=== PATIENT | female | born 1935 | race Caucasian/White ===

== ENCOUNTER 2018-04-21 21:20 | Inpatient (IN) ==
[2018-04-21] MEDS ORDERED: Pantoprazole 80 MG in 0.9 % Sodium Chloride 50 ML IVPB ONE (22:09)
[2018-04-21] MEDS ORDERED: Ondansetron 4 MG/2 ML VIAL IVP ONE (22:09)
[2018-04-21] MEDS ORDERED: 0.9 % Sodium Chloride 1,000 ML IVC ONE (22:09)
[2018-04-21 22:38] LABS: Basophils % 0.1 %; Eosinophils % 0.1 %; Hematocrit 35.8 % (35.3-44.9); Hemoglobin 12.3 g/dL (11.5-15.4); Immature Granulocytes % 2.3 % (0-4); Lymphocytes # 0.6 K/mcL (0.6-4.6); Lymphocytes % 4.1 %; Mean Corpuscular HGB Conc 34.4 g/dL (31.6-35.5); Mean Corpuscular Hemoglobin 29.2 pg (28.0-33.3); Mean Platelet Volume 10.3 fL (9.4-12.4); Monocytes # 0.9 K/mcL (0.0-1.3); Neutrophils # 11.7 K/mcL (1.6-8.9); Platelet Count 183 K/mcL (140-400); Red Blood Count 4.21 M/mcL (3.82-4.97); Red Cell Distribution Width 13.2 % (11.5-14.5); Segmented Neutrophils % 86.4 %
[2018-04-21 22:45] LABS: INR 1.2
[2018-04-21 22:48] LABS: Activated Partial Thrombo Time 27.8 Seconds (26.0-36.0)
[2018-04-21 23:11] LABS: Alanine Aminotransferase 6 Units/L (7-52); Albumin 3.9 g/dL (3.5-5.7); Albumin/Globulin Ratio 1.3 (1.1-2.2); Alkaline Phosphatase 60 Units/L (34-104); Aspartate Amino Transferase 12 Units/L (13-39); BUN/Creatinine Ratio 24 (6-26); Bilirubin,Direct 0.3 mg/dL (0.0-0.2); Bilirubin,Indirect 1.5 mg/dL (0.0-1.2); Bilirubin,Total 1.8 mg/dL (0.3-1.0); Blood Urea Nitrogen 21 mg/dL (8-23); Calcium 9.3 mg/dL (8.6-10.3); Carbon Dioxide 25 mEq/L (23-29); Chloride 103 mEq/L (98-107); Glucose 282 mg/dL (70-105); Lipase 10 Units/L (11-82); Osmolality,Calculated 303 (280-300); Potassium 2.3 mEq/L (3.5-5.1); Sodium 140 mEq/L (136-145); Total Protein 6.9 g/dL (6.4-8.9); Troponin I 0.04 ng/mL (< 0.04); eGFR For African Americans > 60 (> 60); eGFR For Non-African Americans > 60 (> 60)
[2018-04-21] MEDS ORDERED: Potassium Chloride 40 MEQ, Lidocaine 1% 2 ML in D5% in Water 500 ML IVPB ONE (23:12)
--- NOTE | 2018-04-22 | Emergency Department Note ---
Disposition Clinical Impression: Upper GI bleeding Disposition: Admitted As Inpatient Condition: Fair Referrals: Freddie Castro DO [Primary Care Provider] - Forms: ED Satisfaction Letter Time of Disposition: 00:07 Nausea/Vomiting/Diarrhea HPI - General Chief complaint: ED Nausea/Vomiting/Diarrhea Stated complaint: N/V Time Seen by Provider: 04/21/18 21:27 Source: patient, EMS Mode of arrival: EMS Limitations: no limitations Nursing Notes Reviewed: Yes Vital Signs Reviewed: Yes - History of Present Illness Pt Subjective Complaint: nausea, vomiting Onset (ago): hour(s) Description of emesis: coffee grounds Associated Abdominal Pain: No Severity: moderate Improves with: nothing Worsens with: nonthing Associated symptoms: Reports: denies other symptoms - Related Data Home Medications Medication Instructions Recorded Confirmed Atorvastatin [Lipitor] 40 mg PO HS 12/01/15 11/06/17 Glimepiride [Amaryl] 2 mg PO DAILY 12/01/15 11/06/17 Insulin Glargine [Lantus] 15 unit SQ BID 12/01/15 11/06/17 Levothyroxine [Synthroid] 50 mcg PO QDPC 12/01/15 11/06/17 Meclizine [Antivert] 25 mg PO TID PRN 12/01/15 11/06/17 Saxagliptin HCl [Onglyza] 2.5 mg PO QAM 12/01/15 11/06/17 amLODIPine [Norvasc] 5 mg PO DAILY 12/01/15 11/06/17 metFORMIN [Glucophage] 500 mg PO TID 12/01/15 11/06/17 Aspirin 81 mg PO DAILY 10/17/17 11/06/17 Cholecalciferol (D-3) [Vitamin D] 2,000 unit PO DAILY 10/17/17 11/06/17 Famotidine [Pepcid] 20 mg PO BID 10/17/17 11/06/17 Ferrous Sulfate [Iron] 325 mg PO DAILY 10/17/17 11/06/17 Insulin ASPART [NovoLOG] 5 unit SQ DAILY 10/17/17 11/06/17 Magnesium Oxide [Mag-Ox] 400 mg PO TID 10/17/17 11/06/17 Nitroglycerin [Nitrostat] 0.4 mg SL AD PRN 10/17/17 11/06/17 [place]-3/Dha/Epa/Fish Oil [Fish Oil 1 each PO DAILY 10/17/17 11/06/17 1,000 mg Softgel] Potassium Chloride 10 meq PO BID 10/17/17 11/06/17 Previous Rx's Medication Instructions Recorded Metoprolol [Lopressor] 25 mg PO BID #60 tablet 12/03/15 Ondansetron ODT [Zofran ODT] 4 mg SL Q6HR #10 tab.rapdis 04/27/17 Meloxicam 7.5 mg PO DAILY #10 tablet 11/06/17 Tramadol HCl [Ultram] 50 mg PO QID PRN 3 Days #7 tab 11/06/17 Allergies Allergy/AdvReac Type Severity Reaction Status Date / Time exenatide [From Byetta] Allergy Nausea Verified 12/01/15 20:46 All systems ED: reviewed and negative except as stated. Constitutional: Denies: fever, chills ENT ED: Denies: ear pain, throat pain, congestion Cardiovascular: Denies: chest pain, palpitations Respiratory: Denies: cough, dyspnea Gastrointestinal: Reports: nausea, vomiting. Denies: abdominal pain, diarrhea, hematochezia Musculoskeletal: Denies: back pain Integumentary: Denies: rash Neurological: Denies: headache Hematological/Lymphatic: Denies: easy bruising Past Medical History - Past Medical History Attestation: Yes The following information was validated with the patient. Source: patient, old records reviewed, nursing notes reviewed Medical history: Reports: atrial fibrillation, diabetes, GERD, hyperlipidemia, hypertension, myocardial infarction, renal disease, thyroid disease Surgical history: Reports: hip replacement (Bilateral) Psychiatric history: Reports: no psych history CAPACITOR ASSEMBLER history: Reports: no CAPACITOR ASSEMBLER history - Social History Smoking Status: Never smoker Smokeless Tobacco Status: No Alcohol use: Reports: none Drug use: Reports: none Physical Exam - General Limitations: no limitations General appearance: alert, in no apparent distress - Head Head exam: atraumatic, normocephalic, normal inspection - Eye Eye exam: Present: normal appearance, PERRL, EOMI. Absent: scleral icterus, conjunctival injection - ENT ENT exam: normal exam, normal oropharynx, mucous membranes moist, normal external ear exam - Neck Neck exam: Present: normal inspection, full ROM - Chest Chest inspection: Present: normal inspection, symmetric chest wall rise. Absent : tenderness - Respiratory Respiratory exam: Present: normal lung sounds bilaterally. Absent: respiratory distress, wheezes - Cardiovascular Cardiovascular exam: Present: regular rate, normal rhythm, normal heart sounds - Abdominal Exam Abdominal exam: Present: soft, Non-Tender, normal bowel sounds. Absent: mass - Extremities Exam Extremities exam: Present: normal inspection. Absent: pedal edema - Neurological Exam Neurological exam: Present: alert, oriented X3 - Psychiatric Psychiatric exam: Present: normal affect, normal mood - Skin Skin exam: Present: warm, dry. Absent: rash Course Course Narrative: Patient presents with vomiting that is dark and coffee ground. She is denying any other symptoms to me at this time. Examination is unremarkable except for some tachycardia. She has not vomited since arrival here to the emergency department. There is an emesis bag with coffee ground vomit in it that we sent down for Gastroccult and it was positive. I ordered Protonix IV and ordered a lab workup to evaluate the patient. Disposition will be based on diagnostic results and reevaluation. - Reevaluation(s) Reevaluation #1: Hemoglobin is fine. Potassium is little bit low so I ordered a K rider to supplement that. There is a small bump in troponin. Patient was vomiting some coffee ground emesis with gastric occult positive material which is consistent with an upper GI bleed but she has a normal blood pressure. She does have some tachycardia. She started gotten upper tonics. She will need to be admitted to the hospital for serial hemoglobins and follow-up. I have paged the hospitalist and am waiting for a return call. Time: 00:02 - Consultations Consultation #1: Dr. Broussard, hospitalist - I discussed the case with the hospitalist. He is accepted patient for admission. Time: 00:07 Vital Signs Temperature 98.2 F 04/21/18 21:25 Pulse Rate 93 04/21/18 21:25 Respiratory Rate 14 04/21/18 21:25 Blood Pressure 162/81 04/21/18 21:25 O2 Sat by Pulse Oximetry 93 04/21/18 21:25 Temperature 98.2 F 04/21/18 21:25 Pulse Rate 108 04/21/18 23:38 Respiratory Rate 16 04/21/18 23:38 Blood Pressure 106/68 04/21/18 23:38 O2 Sat by Pulse Oximetry 94 04/21/18 23:38 Oxygen Delivery Oxygen Delivery Room Air Nausea/Vomiting/Diarrhea - Medical Records Medical records reviewed: Yes I reviewed the patient's medical records. - Lab Data Lab results reviewed: Yes I reviewed the patient's lab results. Result diagrams: 04/21/18 22:28 04/21/18 22:28 Lab Results 04/21/18 04/21/18 04/21/18 Range/Units 21:25 22:28 22:28 WBC 13.5 H (4.3-11.1) K/mcL RBC 4.21 (3.82-4.97) M/mcL Hgb 12.3 (11.5-15.4) g/dL Hct 35.8 (35.3-44.9) % MCV 85.0 (83.0-100.0) fL MCH 29.2 (28.0-33.3) pg MCHC 34.4 (31.6-35.5) g/dL RDW 13.2 (11.5-14.5) % Plt Count 183 (140-400) K/mcL MPV 10.3 (9.4-12.4) fL Immature Gran % 2.3 (0-4) % Seg Neutrophils % 86.4 % Lymphocytes % 4.1 % Monocytes % 7.0 % Eosinophils % 0.1 % Basophils % 0.1 % Neutrophils # 11.7 H (1.6-8.9) K/mcL Lymphocytes # 0.6 (0.6-4.6) K/mcL Monocytes # 0.9 (0.0-1.3) K/mcL Eosinophils # 0.0 (0.0-0.6) K/mcL Basophils # 0.0 (0.0-0.2) K/mcL PT 14.0 H (9.4-12.1) Seconds INR 1.2 APTT 27.8 (26.0-36.0) Seconds Sodium (136-145) mEq/L Potassium (3.5-5.1) mEq/L Chloride (98-107) mEq/L Carbon Dioxide (23-29) mEq/L BUN (8-23) mg/dL Creatinine (0.60-1.20) mg/dL Est GFR ( Amer) (> 60) Est GFR (Non-Af Amer) (> 60) BUN/Creatinine Ratio (6-26) Glucose (70-105) mg/dL Calculated Osmolality (280-300) Lactic Acid (0.5-2.2) mmol/L Calcium (8.6-10.3) mg/dL Total Bilirubin (0.3-1.0) mg/dL Direct Bilirubin (0.0-0.2) mg/dL Indirect Bilirubin (0.0-1.2) mg/dL AST (13-39) Units/L ALT (7-52) Units/L Alkaline Phosphatase (34-104) Units/L Troponin I (< 0.04) ng/mL Serum Total Protein (6.4-8.9) g/dL Albumin (3.5-5.7) g/dL Globulin (2.4-3.5) g/dL Albumin/Globulin Ratio (1.1-2.2) Lipase (11-82) Units/L Stool Occult Blood Positive A (Negative) Blood Type Antibody Screen 04/21/18 04/21/18 04/21/18 Range/Units 22:28 22:28 22:28 WBC (4.3-11.1) K/mcL RBC (3.82-4.97) M/mcL Hgb (11.5-15.4) g/dL Hct (35.3-44.9) % MCV (83.0-100.0) fL MCH (28.0-33.3) pg MCHC (31.6-35.5) g/dL RDW (11.5-14.5) % Plt Count (140-400) K/mcL MPV (9.4-12.4) fL Immature Gran % (0-4) % Seg Neutrophils % % Lymphocytes % % Monocytes % % Eosinophils % % Basophils % % Neutrophils # (1.6-8.9) K/mcL Lymphocytes # (0.6-4.6) K/mcL Monocytes # (0.0-1.3) K/mcL Eosinophils # (0.0-0.6) K/mcL Basophils # (0.0-0.2) K/mcL PT (9.4-12.1) Seconds INR APTT (26.0-36.0) Seconds Sodium 140 (136-145) mEq/L Potassium 2.3 L* (3.5-5.1) mEq/L Chloride 103 (98-107) mEq/L Carbon Dioxide 25 (23-29) mEq/L BUN 21 (8-23) mg/dL Creatinine 0.86 (0.60-1.20) mg/dL Est GFR ( Amer) > 60 (> 60) Est GFR (Non-Af Amer) > 60 (> 60) BUN/Creatinine Ratio 24 (6-26) Glucose 282 H (70-105) mg/dL Calculated Osmolality 303 H (280-300) Lactic Acid 1.3 (0.5-2.2) mmol/L Calcium 9.3 (8.6-10.3) mg/dL Total Bilirubin 1.8 H (0.3-1.0) mg/dL Direct Bilirubin 0.3 H (0.0-0.2) mg/dL Indirect Bilirubin 1.5 H (0.0-1.2) mg/dL AST 12 L (13-39) Units/L ALT 6 L (7-52) Units/L Alkaline Phosphatase 60 (34-104) Units/L Troponin I 0.04 H* (< 0.04) ng/mL Serum Total Protein 6.9 (6.4-8.9) g/dL Albumin 3.9 (3.5-5.7) g/dL Globulin 3.0 (2.4-3.5) g/dL Albumin/Globulin Ratio 1.3 (1.1-2.2) Lipase 10 L (11-82) Units/L Stool Occult Blood (Negative) Blood Type O POSITIVE Antibody Screen NEGATIVE - Radiology Data Radiology results reviewed: Yes I reviewed the patient's radiology results. Twelve-lead EKG performed at 20 1:53 PM shows atrial fibrillation at a rate of 129. Left axis deviation. Left bundle branch block. No obvious acute ischemic changes. Except for the rate and the rhythm, the rest of the EKG looks similar to previous EKGs.
[2018-04-22] MEDS ORDERED: Ondansetron ODT 4 MG TAB.RAPDIS SL PRN (01:09)
[2018-04-22] MEDS ORDERED: Naloxone 0.4 MG/ML INJ IVP PRN (01:09)
[2018-04-22] MEDS ORDERED: Nitroglycerin 0.4 MG TAB.SUBL SL PRN (01:22)
[2018-04-22] MEDS ORDERED: *HR* Dextrose 50 % in Water (Syg) 50 ML SYRINGE IVP PRN (01:23)
[2018-04-22] MEDS ORDERED: Dextrose Gel 15 GM/37.5 ML TUBE PO PRN ×2 (01:23)
[2018-04-22] MEDS ORDERED: D5% in Water 1,000 ML IVC PRN (01:23)
--- NOTE | 2018-04-22 01:24 | Internal Med History&Physical ---
Date of Encounter: 04/22/18 Time of Encounter: 00:30 Internal Medicine - H&P: HPI Chief complaint: Nausea and coffee ground emesis Admitted From: Home Plans for Post Hospital Care: Home History of present illness: Ms. Aiken is a 82 year old female present to ER for nausea and coffee ground emesis. Past medical history is significant for diabetes, hypertension, A. fib. Patient said she started to have stomach sick since this evening. She has nausea and vomited several times. The vomiting are dark and black emesis. Patient denies chest pain, shortness of breath, diaphoresis, or dizziness. Patient also reports black stool occasionally. Patient had last bowel movement on Sunday, and report the stool is black. Patient denies blood thinner use except aspirin 325 mg daily. Patient denies abdominal pain or diarrhea. In the emergency room, guaiac test positive. Patient has stable vitals and H&H. She was admitted as GI bleed, probably due to high-dose aspirin use. Patient denies significant body weight loss. I have discussed CODE STATUS with this patient. Patient is mentally clear, AAO 3, she clearly told me that she does not want resuscitation or intubation. DNR DNI placed. Past Med Surg Social Fam HX - Past Medical History Medical history: atrial fibrillation, diabetes, GERD, hyperlipidemia, hypertension, myocardial infarction, renal disease, thyroid disease Additional medical history: "lung problems" Psychiatric history: no psych history - Past Surgical History Surgical History: hip replacement (Bilateral) Additional surgical history: tubal preg. 1955 bilat carpal tunnel repair. Left eye sx. ORIF BOTH HIPS. - Social History Smoking Status: Never smoker Smokeless Tobacco Status: No Alcohol use: none Drug use: none - Family History Mother History Unknown: Yes Internal Medicine - H&P: Meds Atorvastatin [Lipitor] 40 mg PO HS 12/01/15 [History] Glimepiride [Amaryl] 2 mg PO DAILY 12/01/15 [History] Insulin Glargine [Lantus] 15 unit SQ BID 12/01/15 [History] Levothyroxine [Synthroid] 50 mcg PO QDPC 12/01/15 [History] Meclizine [Antivert] 25 mg PO TID PRN 12/01/15 [History] Saxagliptin HCl [Onglyza] 2.5 mg PO QAM 12/01/15 [History] amLODIPine [Norvasc] 5 mg PO DAILY 12/01/15 [History] metFORMIN [Glucophage] 500 mg PO TID 12/01/15 [History] Metoprolol [Lopressor] 25 mg PO BID #60 tablet 12/03/15 [Rx] Ondansetron ODT [Zofran ODT] 4 mg SL Q6HR #10 tab.rapdis 04/27/17 [Rx] Aspirin 81 mg PO DAILY 10/17/17 [History] Cholecalciferol (D-3) [Vitamin D] 2,000 unit PO DAILY 10/17/17 [History] Famotidine [Pepcid] 20 mg PO BID 10/17/17 [History] Ferrous Sulfate [Iron] 325 mg PO DAILY 10/17/17 [History] Insulin ASPART [NovoLOG] 5 unit SQ DAILY 10/17/17 [History] Magnesium Oxide [Mag-Ox] 400 mg PO TID 10/17/17 [History] Nitroglycerin [Nitrostat] 0.4 mg SL AD PRN 10/17/17 [History] [place]-3/Dha/Epa/Fish Oil [Fish Oil 1,000 mg Softgel] 1 each PO DAILY 10/17/17 [ History] Potassium Chloride 10 meq PO BID 10/17/17 [History] Meloxicam 7.5 mg PO DAILY #10 tablet 11/06/17 [Rx] Tramadol HCl [Ultram] 50 mg PO QID PRN 3 Days #7 tab 11/06/17 [Rx] 3 Allergy/AdvReac Type Severity Reaction Status Date / Time exenatide [From Byetta] Allergy Nausea Verified 12/01/15 20:46 All Systems PM: A 10-system review of systems was performed and is negative for pertinent findings except as documented above in the HPI. - Constitutional Vitals: Temp Pulse Resp BP Pulse Ox 98.2 F 111 18 103/69 92 04/21/18 21:25 04/22/18 00:34 04/22/18 00:34 04/22/18 00:34 04/22/18 00:34 General appearance: Present: A&O X 3, no acute distress, answers questions appropriately - Head Head exam: Present: atraumatic, normocephalic - Eye Eye exam: Present: PERRL, conjuntiva pink, sclera anicteric Pupils: Present: PERRL - Neck Neck exam general surgery: Present: supple, trachea midline. Absent: lymphadenopathy - Respiratory Respiratory exam: Present: CTAB. Absent: accessory muscle use, rales, rhonchi, wheezes - Cardiovascular Cardiovascular exam: Present: RRR, +S1, +S2. Absent: diastolic murmur, gallop, rubs, systolic murmur - GI/Abdominal GI/Abdominal exam: Present: normal bowel sounds, soft, no peritoneal signs. Absent: distended, tenderness - Extremities Exam Extremities exam: Present: warm, radial pulses palpable and symmetrical. Absent : calf tenderness, cyanotic, pedal edema - Neurological Exam Neurological exam: Present: CN II-XII intact, oriented X3, no focal deficits. Absent: pronater drift, facial droop, speech deficit - Skin Skin exam: Present: dry, intact Internal Med - H&P Results - Labs CBC & Chem 7: 04/21/18 22:28 04/21/18 22:28 Labs: Short CBC 04/21/18 Range/Units 22:28 WBC 13.5 H (4.3-11.1) K/mcL Hgb 12.3 (11.5-15.4) g/dL Hct 35.8 (35.3-44.9) % Plt Count 183 (140-400) K/mcL Neutrophils # 11.7 H (1.6-8.9) K/mcL BMP 04/21/18 22:28 Sodium 140 Potassium 2.3 L* Chloride 103 Carbon Dioxide 25 BUN 21 Creatinine 0.86 Glucose 282 H Calcium 9.3 Cardiac Enzymes 04/21/18 Range/Units 22:28 Troponin I 0.04 H* (< 0.04) ng/mL Liver Function 04/21/18 Range/Units 22:28 Total Bilirubin 1.8 H (0.3-1.0) mg/dL Direct Bilirubin 0.3 H (0.0-0.2) mg/dL AST 12 L (13-39) Units/L ALT 6 L (7-52) Units/L Alkaline Phosphatase 60 (34-104) Units/L Albumin 3.9 (3.5-5.7) g/dL - Impressions ITS Impressions Chest X-Ray 04/21/18 22:08 IMPRESSION: 1. Chronic pulmonary fibrosis. 2. Calcific atherosclerosis aorta. 3. Cardiomegaly. D/ / Freddie Joiner / Freddie Joiner Interpreting Provider: Freddie Joiner - Assessment and plan (1) DVT prophylaxis Current Visit: Yes Status: Acute Assessment and plan: EPCDs (2) Upper GI bleeding Current Visit: Yes Status: Acute Assessment and plan: Patient has coffee ground emesis. Reports black stool. Guaiac test positive. Consider upper GI bleed. Probably due to aspirin use. - Place patient on nothing by mouth, IV fluid, IV PPI - Closely monitor vitals and H&H - GI consult in a.m. (3) Anginal equivalent Current Visit: No Status: Acute Assessment and plan: Patient has nausea and vomiting. Denies chest pain. Etiology is undetermined. Patient has a mild elevated troponin, need to rule out ACS. - Place patient on continuous cardiac monitoring - Track 3 sets of troponin (4) Elevated troponin Current Visit: No Status: Acute Assessment and plan: Management as above (5) Atrial fibrillation Current Visit: No Status: Chronic Assessment and plan: Patient is on sinus rhythm when I saw her. Continue rate control by metoprolol iv when necessary. Hold aspirin because of GI bleed. Qualifiers: Atrial fibrillation type: paroxysmal Qualified Code(s): I48.0 - Paroxysmal atrial fibrillation (6) DM type 2 (diabetes mellitus, type 2) Current Visit: No Status: Chronic Assessment and plan: Place patient on basal and sliding scale insulin coverage. Closely monitor glucose. Qualifiers: Diabetes mellitus fdc insulin use: with fdc use Diabetes mellitus complication status: with kidney complications Diabetes mellitus complication detail: with chronic kidney disease Chronic kidney disease stage : stage 3 (moderate) Qualified Code(s): E11.22 - Type 2 diabetes mellitus with diabetic chronic kidney disease; N18.3 - Chronic kidney disease, stage 3 ( moderate); N18.3 - Chronic kidney disease, stage 3 (moderate); Z79.4 - retirement (current) use of insulin; Z79.4 - intermediate project manager (current) use of insulin; Z79.4 - retirement (current) use of insulin; Z79.4 - intermediate project manager (current) use of insulin (7) Hypertension Current Visit: No Status: Chronic Assessment and plan: BP is not high. Patient has GI bleed. Will hold BP medications at this point Qualifiers: Hypertension type: essential hypertension Qualified Code(s): I10 - Essential (primary) hypertension (8) Hypokalemia Current Visit: No Status: Resolved Assessment and plan: Severe hypokalemia. Will give IV supplement and a closely monitor potassium level. Check magnesium level in a.m. Monitor patient in telemetric - Time Spent With Patient Total time spent is greater than 50% in coordination of care (as documented) at patient's floor/unit and/or counseling patient: 40 minutes Greater than 35 minutes
[2018-04-22] MEDS: Insulin LISPRO 300 UNITS/3 ML VIAL SQ SCH ×4 (05:24→21:32)
[2018-04-22] MEDS: Pantoprazole 40 MG VIAL IVP SCH ×2 (05:24→18:02)
[2018-04-22] MEDS: 0.9 % Sodium Chloride 1,000 ML IVC SCH (05:25)
[2018-04-22 05:41] LABS: Basophils % 0.1 %; Hematocrit 30.2 % (35.3-44.9); Immature Granulocytes % 2.7 % (0-4); Lymphocytes # 0.7 K/mcL (0.6-4.6); Lymphocytes % 5.5 %; Mean Corpuscular HGB Conc 33.1 g/dL (31.6-35.5); Mean Corpuscular Volume 87.5 fL (83.0-100.0); Mean Platelet Volume 10.7 fL (9.4-12.4); Monocytes # 0.7 K/mcL (0.0-1.3); Monocytes % 5.6 %; Neutrophils # 11.2 K/mcL (1.6-8.9); Platelet Count 158 K/mcL (140-400); Red Blood Count 3.45 M/mcL (3.82-4.97); Red Cell Distribution Width 13.5 % (11.5-14.5); Segmented Neutrophils % 86.1 %
[2018-04-22 05:56] LABS: BUN/Creatinine Ratio 23 (6-26); Blood Urea Nitrogen 21 mg/dL (8-23); Calcium 8.3 mg/dL (8.6-10.3); Carbon Dioxide 25 mEq/L (23-29); Chloride 105 mEq/L (98-107); Glucose 391 mg/dL (70-105); Magnesium 1.4 mg/dL (1.6-2.6); Osmolality,Calculated 305 (280-300); Phosphorous 3.2 mg/dL (2.7-4.5); Potassium 3.2 mEq/L (3.5-5.1); Sodium 138 mEq/L (136-145); eGFR For African Americans > 60 (> 60); eGFR For Non-African Americans 58 (> 60)
[2018-04-22 06:00] LABS: Troponin I 0.07 ng/mL (< 0.04)
[2018-04-22] MEDS ORDERED: Potassium Chloride 40 MEQ, Lidocaine 1% 2 ML in D5% in Water 500 ML IVPB ONE (07:30)
[2018-04-22] MEDS: Insulin DETEMIR 100 UNIT/ML X5UNITS SQ SCH (08:23)
[2018-04-22] MEDS ORDERED: *HR* Propofol 200 MG/20 ML VIAL IVP ONE (12:25)
[2018-04-22] MEDS ORDERED: Lidocaine -MPF 2% 2 ML VIAL ONE (12:25)
[2018-04-22 12:27] LABS: Hemoglobin 9.8 g/dL (11.5-15.4)
--- NOTE | 2018-04-22 12:30 | Internal Med Progress Note ---
Date of Encounter: 04/22/18 Time of Encounter: 12:26 - Assessment and plan (1) Upper GI bleeding Current Visit: Yes Status: Acute Assessment and plan: Mostly upper GI bleed NPO fo now GI consulted Hb dropped down to 9.8 from 12.3 cont close monitoring H/H PPI Protonix IV BID IV hydration (2) Acute blood loss anemia Current Visit: Yes Status: Acute Assessment and plan: Hb dropped down to 9.8 from 12.3 No need of blood transfusions now cont close monitoring (3) Elevated troponin Current Visit: No Status: Acute Assessment and plan: EKG showed no acute ischemic changes Her slightly elevated trop mostly due to demand ischemia with GI bleed cont trending on her trop held ASA due to GI bleed 2D Echo ordered (4) Hypokalemia Current Visit: No Status: Resolved Assessment and plan: Severe hypokalemia Improving cont replacing (5) Atrial fibrillation Current Visit: No Status: Chronic Assessment and plan: Rate controlled with Metoprolol CHADSVASC score 3, may need alf anti coag However with her GI bleed, unable to start anything now Qualifiers: Atrial fibrillation type: paroxysmal Qualified Code(s): I48.0 - Paroxysmal atrial fibrillation (6) Hypertension Current Visit: No Status: Chronic Assessment and plan: Stable and lower side Held PO meds Qualifiers: Hypertension type: essential hypertension Qualified Code(s): I10 - Essential (primary) hypertension (7) DM type 2 (diabetes mellitus, type 2) Current Visit: No Status: Chronic Assessment and plan: patient on basal and sliding scale insulin coverage. Closely monitor glucose. Qualifiers: Diabetes mellitus alf insulin use: with intermediate teacher use Diabetes mellitus complication status: with kidney complications Diabetes mellitus complication detail: with chronic kidney disease Chronic kidney disease stage : stage 3 (moderate) Qualified Code(s): E11.22 - Type 2 diabetes mellitus with diabetic chronic kidney disease; N18.3 - Chronic kidney disease, stage 3 ( moderate); N18.3 - Chronic kidney disease, stage 3 (moderate); Z79.4 - nursing home (current) use of insulin; Z79.4 - long term care administrator (current) use of insulin; Z79.4 - long term care administrator (current) use of insulin; Z79.4 - long term care administrator (current) use of insulin (8) DVT prophylaxis Current Visit: Yes Status: Acute Assessment and plan: EPCDs - Time Spent With Patient Total time spent is greater than 50% in coordination of care (as documented) at patient's floor/unit and/or counseling patient: - Subjective Interval history: Ms. Aiken is a 82 year old female with known past medical history is significant for diabetes, hypertension and A. fib currently on ASA 81mg pt presented to ER for nausea and coffee ground emesis for 1 day. Pt does c/o dark colored stools. Denied any CP / SOB. She does have weakness and feels lethargic. She denied any previous h/o GI bleed. Pt states her N/V improved. no more hematemesis since this morning. Denied any active CP now. - Constitutional Vitals: Temp Pulse Resp BP Pulse Ox 98.4 F 104 18 101/58 94 04/22/18 12:12 04/22/18 12:12 04/22/18 12:12 04/22/18 12:12 04/22/18 12:12 General appearance: Present: A&O X 3, no acute distress, answers questions appropriately - Head Head exam: Present: atraumatic, normal inspection - Neck Neck exam general surgery: Present: supple - Respiratory Respiratory exam: Present: decreased breath sounds. Absent: rales, respiratory distress, rhonchi, wheezes - Cardiovascular Cardiovascular exam: Present: RRR, +S1, +S2. Absent: tachycardia - GI/Abdominal GI/Abdominal exam: Present: normal bowel sounds, soft. Absent: rebound, rigid, tenderness - Extremities Exam Extremities exam: Absent: calf tenderness, pedal edema, tenderness - Back Exam Back exam: Absent: CVA tenderness (L), CVA tenderness (R) - Neurological Exam Neurological exam: Present: alert, oriented X3 - Psychiatric Psychiatric exam: Present: normal affect, normal mood - Skin Skin exam: Absent: rash Internal Medicine: Result - Labs CBC & Chem 7: 04/22/18 04:55 04/22/18 04:55 Labs: Short CBC 04/22/18 Range/Units 04:55 WBC 13.0 H (4.3-11.1) K/mcL Hgb 10.0 L D (11.5-15.4) g/dL Hct 30.2 L (35.3-44.9) % Plt Count 158 (140-400) K/mcL Neutrophils # 11.2 H (1.6-8.9) K/mcL BMP 04/22/18 04:55 Sodium 138 Potassium 3.2 L D Chloride 105 Carbon Dioxide 25 BUN 21 Creatinine 0.92 Glucose 391 H Calcium 8.3 L Cardiac Enzymes 04/22/18 Range/Units 04:55 Troponin I 0.07 H* (< 0.04) ng/mL - ABG Interpretation ABG results: PT/INR, D-dimer PT 14.0 Seconds (9.4-12.1) H 04/21/18 22:28 - VTE Documentation of Mechanical Device: Intermittent pneumatic compression device Consult Discharge Plan - Plan Referrals: Freddie Castro DO [Primary Care Provider] -
[2018-04-22] MEDS ORDERED: Tetracaine/Benzocaine/Butamben 200MG/SPRAY (100SPY/BOT) MM ONE (13:27)
[2018-04-22] MEDS ORDERED: Simethicone 40 MG/0.6 ML MLS IR ONE (13:27)
--- NOTE | 2018-04-22 13:28 | Anesthesia Evaluation PreOp ---
Date of Encounter: 04/22/18 Time of Encounter: 13:26 - Past History Planned Operation: EGD Cardiac History: UT, HTN, Hyperlipidemia, Arrhythmia (H/O A-Fib) Pulmonary History: Denies Any Significant HX BROWN SOURER History: Denies Any Significant HX Other Medical History: Renal, Diabetes Type II, Thyroid Anesthesia History: No Prior Anesthetic Complications, Past Anesthesia Alcohol Use: none Drug use: none Medications and Allergies Atorvastatin [Lipitor] 40 mg PO HS 12/01/15 [History] Glimepiride [Amaryl] 2 mg PO DAILY 12/01/15 [History] Insulin Glargine [Lantus] 15 unit SQ BID 12/01/15 [History] Levothyroxine [Synthroid] 50 mcg PO QDPC 12/01/15 [History] Meclizine [Antivert] 25 mg PO TID PRN 12/01/15 [History] Saxagliptin HCl [Onglyza] 2.5 mg PO QAM 12/01/15 [History] amLODIPine [Norvasc] 5 mg PO DAILY 12/01/15 [History] metFORMIN [Glucophage] 500 mg PO TID 12/01/15 [History] Metoprolol [Lopressor] 25 mg PO BID #60 tablet 12/03/15 [Rx] Ondansetron ODT [Zofran ODT] 4 mg SL Q6HR #10 tab.rapdis 04/27/17 [Rx] Aspirin 81 mg PO DAILY 10/17/17 [History] Cholecalciferol (D-3) [Vitamin D] 2,000 unit PO DAILY 10/17/17 [History] Famotidine [Pepcid] 20 mg PO BID 10/17/17 [History] Ferrous Sulfate [Iron] 325 mg PO DAILY 10/17/17 [History] Insulin ASPART [NovoLOG] 5 unit SQ DAILY 10/17/17 [History] Magnesium Oxide [Mag-Ox] 400 mg PO TID 10/17/17 [History] Nitroglycerin [Nitrostat] 0.4 mg SL AD PRN 10/17/17 [History] [place]-3/Dha/Epa/Fish Oil [Fish Oil 1,000 mg Softgel] 1 each PO DAILY 10/17/17 [ History] Potassium Chloride 10 meq PO BID 10/17/17 [History] Meloxicam 7.5 mg PO DAILY #10 tablet 11/06/17 [Rx] Tramadol HCl [Ultram] 50 mg PO QID PRN 3 Days #7 tab 11/06/17 [Rx] 3 Allergy/AdvReac Type Severity Reaction Status Date / Time exenatide [From [place]] Allergy Nausea Verified 12/01/15 20:46 - Meds/Allergy Pre-op Review Medications Reviewed: Yes Allergies Reviewed: Yes Beta Blockers on Current Med List: Yes Anesthesia Results - Labs 04/22/18 11:57 04/22/18 04:55 - Imaging EKG: report reviewed (10/17/2017 SINUS RHYTHM MARKED LEFT AXIS DEVIATION LEFT BUNDLE BRANCH BLOCK) Additional studies: 02/25/2015 Echo Impressions: Normal LV systolic function, LVEF 55-60%. There is atypical septal motion consistent with bundle branch block. Mild concentric left ventricular hypertrophy. Mild left ventricular diastolic dysfunction. Normal right ventricular structure and function. Moderately dilated left atrium. Mild tricuspid regurgitation. Mild-moderate pulmonary hypertension. Estimated RVSP = 47 mmHg. 08/17/2011 Cath Impression: Minimal atherosclerotic coronary artery disease. The overall left ventricular systolic function was normal. The left ventricular ejection fraction was 60%. Anesthesia Exam Vital Signs/O2 Sat/Glucose, Most Recent Temp Pulse Resp BP Pulse Ox 98.4 F 70 18 145/64 100 04/22/18 13:19 04/22/18 13:19 04/22/18 13:19 04/22/18 13:19 04/22/18 13:19 Blood Glucose* 181 Height: 5'4''/1.63m Weight: 122 lbs/55.6 kg NPO (# of Hours): 8 Pain Scale: 0 Pain Scale Used: Numeric (1 - 10) - HEENT Pupil (Motor): EOMI Mallampati: II Teeth: Missing, Poor dentition Oral Opening: Greater than 3 - BROWN SOURER LOC: Oriented BROWN SOURER Motor: Normal RUE, Normal LUE, Normal RLE, Normal Face, Deficit LLE (drop foot) BROWN SOURER Sensory: Normal: RUE, LUE, RLE, LLE, Face - Cardiac Rhythm: Regular Murmur: None - Pulmonary Breath Sounds: bilateral Clear Respiratory Effort: Symmetrical Anesthesia Assess/Plan ASA Score: 3 Modified [place] Scale for Level of Consciousness: Cooperative, oriented, and tranquil Anesthetic Plan: MAC Monitoring Plan: Standard Monitors
--- NOTE | 2018-04-22 13:28 | History & Physical Report ---
Date of Encounter: 04/22/18 Time of Encounter: 13:00 24 Hour HP Update - Instructions Instructions: If the History and Physical is less than 30 days old and was completed prior to A.M. admission and or procedure and has NOT been updated on calendar day of procedure please complete this update prior to performing procedure. - Update Patient reports changes in Medical Condition: No Changes in examination, assessment, or condition: No Changes in Medication: No Preop tests/diagnostics Reviewed: Yes Surgery Remains Indicated: Yes Consent for Planned Operative Procedure(s) Verified: Yes
[2018-04-22 16:28] LABS: Hemoglobin 9.7 g/dL (11.5-15.4)
[2018-04-23 01:59] LABS: Eosinophils # 0.1 K/mcL (0.0-0.6); Eosinophils % 0.9 %; Hematocrit 29.1 % (35.3-44.9); Hemoglobin 9.4 g/dL (11.5-15.4); Immature Granulocytes % 0.9 % (0-4); Lymphocytes # 1.7 K/mcL (0.6-4.6); Lymphocytes % 25.8 %; Mean Corpuscular HGB Conc 32.3 g/dL (31.6-35.5); Mean Corpuscular Hemoglobin 28.8 pg (28.0-33.3); Mean Corpuscular Volume 89.3 fL (83.0-100.0); Mean Platelet Volume 10.3 fL (9.4-12.4); Monocytes # 0.4 K/mcL (0.0-1.3); Monocytes % 6.1 %; Neutrophils # 4.3 K/mcL (1.6-8.9); Platelet Count 139 K/mcL (140-400); Red Blood Count 3.26 M/mcL (3.82-4.97); Red Cell Distribution Width 13.6 % (11.5-14.5); Segmented Neutrophils % 66.3 %
[2018-04-23 02:22] LABS: BUN/Creatinine Ratio 20 (6-26); Blood Urea Nitrogen 20 mg/dL (8-23); Calcium 8.2 mg/dL (8.6-10.3); Carbon Dioxide 27 mEq/L (23-29); Chloride 110 mEq/L (98-107); Glucose 114 mg/dL (70-105); Osmolality,Calculated 295 (280-300); Potassium 3.4 mEq/L (3.5-5.1); Sodium 141 mEq/L (136-145); eGFR For African Americans > 60 (> 60); eGFR For Non-African Americans 54 (> 60)
[2018-04-23] MEDS: Insulin LISPRO 300 UNITS/3 ML VIAL SQ SCH ×4 (07:44→22:17)
[2018-04-23] MEDS: Insulin DETEMIR 100 UNIT/ML X5UNITS SQ SCH (09:03)
[2018-04-23] MEDS ORDERED: Potassium Chloride 40 MEQ, Lidocaine 1% 2 ML in D5% in Water 500 ML IVPB ONE (09:21)
[2018-04-23] MEDS ORDERED: *HR* Metoprolol 5 MG/5 ML VIAL IVP SCH (09:30)
[2018-04-23] MEDS ORDERED: 0.9 % Sodium Chloride 500 ML IVC ONE (09:55)
[2018-04-23] MEDS: Pantoprazole 40 MG VIAL IVP SCH (10:16)
[2018-04-23 10:21] LABS: Hematocrit 35.3 % (35.3-44.9)
[2018-04-23 10:25] LABS: Hemoglobin 11.4 g/dL (11.5-15.4)
[2018-04-23 10:43] LABS: Magnesium 1.4 mg/dL (1.6-2.6); Potassium 3.6 mEq/L (3.5-5.1)
--- NOTE | 2018-04-23 12:17 | Internal Med Progress Note ---
Date of Encounter: 04/23/18 Time of Encounter: 10:00 - Assessment and plan (1) Upper GI bleeding Current Visit: Yes Status: Acute Assessment and plan: Mostly upper GI bleed GI consulted s/p EGD showed single non bleeding erosion at GE junction Hb stable @ 11.4 d/c IVF switched to PO PPI and added Carafate (2) Acute blood loss anemia Current Visit: Yes Status: Acute Assessment and plan: Hb stable now No need of blood transfusions now cont close monitoring (3) Elevated troponin Current Visit: No Status: Acute Assessment and plan: EKG showed no acute ischemic changes Her slightly elevated trop mostly due to demand ischemia with GI bleed cont trending on her trop held ASA due to GI bleed 2D Echo ordered (4) Hypokalemia Current Visit: No Status: Resolved Assessment and plan: Severe hypokalemia Improving cont replacing (5) Atrial fibrillation Current Visit: No Status: Chronic Assessment and plan: Went into A fib with RVR this morning With Cardizem 10mg IV bolus, she got converted to sinus rhythm now cont PO Metoprolol CHADSVASC score 3, may need nursing home anti coag However with her GI bleed, unable to start anything now Qualifiers: Atrial fibrillation type: paroxysmal Qualified Code(s): I48.0 - Paroxysmal atrial fibrillation (6) Hypertension Current Visit: No Status: Chronic Assessment and plan: Stable and lower side Held PO meds Qualifiers: Hypertension type: essential hypertension Qualified Code(s): I10 - Essential (primary) hypertension (7) DM type 2 (diabetes mellitus, type 2) Current Visit: No Status: Chronic Assessment and plan: patient on basal and sliding scale insulin coverage. Closely monitor glucose. 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 Aiken is a 82 year old female with known past medical history is significant for diabetes, hypertension and A. fib currently on ASA 81 mg pt presented to ER for nausea and coffee ground emesis for 1 day. Pt did c/o dark colored stools. Denied any CP / SOB. She does have weakness and feels lethargic. She denied any previous h/o GI bleed. Pt states her N/V improved. no more hematemesis since admission. Denied any active CP now. She went into A fib with RVR today. - Constitutional Vitals: Temp Pulse Resp BP Pulse Ox 97.8 F 70 17 143/68 96 04/23/18 10:39 04/23/18 10:39 04/23/18 10:39 04/23/18 10:39 04/23/18 10:39 General appearance: Present: A&O X 3, no acute distress, answers questions appropriately - Head Head exam: Present: atraumatic, normal inspection - Neck Neck exam general surgery: Present: supple - Respiratory Respiratory exam: Present: decreased breath sounds. Absent: rales, respiratory distress, rhonchi, wheezes - Cardiovascular Cardiovascular exam: Present: RRR, +S1, +S2. Absent: systolic murmur, tachycardia - GI/Abdominal GI/Abdominal exam: Present: normal bowel sounds, soft. Absent: rebound, rigid, tenderness - Extremities Exam Extremities exam: Absent: calf tenderness, pedal edema, tenderness - Back Exam Back exam: Absent: CVA tenderness (L), CVA tenderness (R) Internal Medicine: Result - Labs CBC & Chem 7: 04/23/18 09:56 04/23/18 09:56 Labs: Short CBC 04/22/18 04/22/18 04/23/18 Range/Units 11:57 15:56 01:45 WBC 6.5 (4.3-11.1) K/mcL Hgb 9.8 L 9.7 L 9.4 L (11.5-15.4) g/dL Hct 30.0 L 30.0 L 29.1 L (35.3-44.9) % Plt Count 139 L (140-400) K/mcL Neutrophils # 4.3 (1.6-8.9) K/mcL 04/23/18 Range/Units 09:56 WBC (4.3-11.1) K/mcL Hgb 11.4 L D (11.5-15.4) g/dL Hct 35.3 (35.3-44.9) % Plt Count (140-400) K/mcL Neutrophils # (1.6-8.9) K/mcL BMP 04/23/18 04/23/18 01:45 09:56 Sodium 141 144 Potassium 3.4 L 3.6 Chloride 110 H 106 Carbon Dioxide 27 27 BUN 20 20 Creatinine 0.99 1.09 Glucose 114 H 188 H Calcium 8.2 L 9.0 Cardiac Enzymes 04/22/18 04/22/18 04/23/18 Range/Units 11:57 15:56 09:56 Troponin I 0.06 H* 0.06 H* 0.04 H* (< 0.04) ng/mL - ABG Interpretation ABG results: PT/INR, D-dimer PT 14.0 Seconds (9.4-12.1) H 04/21/18 22:28 - Impressions Impressions Chest X-Ray 04/23/18 09:22 IMPRESSION: Stable chest demonstrating diffuse interstitial fibrosis. D/ / 04/23/2018 11:02:07 Markell Jordan MD / alisha Interpreting Provider: Markell Jordan MD - VTE Documentation of Mechanical Device: Intermittent pneumatic compression device Consult Discharge Plan - Plan Referrals: Freddie Castro DO [Primary Care Provider] -
--- NOTE | 2018-04-23 15:47 | Gastroenterology Progress Note ---
Date of Encounter: 04/23/18 Time of Encounter: 15:43 - Assessment and plan (1) Upper GI bleeding Current Visit: Yes Status: Acute Assessment and plan: - EGD yesterday showed 1 non bleeding ulcer at esophageal ulcer, mild inflammation - added carafate yesterday to PPI - Pathology results pending - no further dark bowel movements, H/H stable 11.4/35 - Mildly elevated troponin likely secondary to GI bleed. Primary team obtaining echo. - Continue to monitor however likely resolved (2) Paroxysmal atrial fibrillation with rapid ventricular response Current Visit: Yes Status: Chronic Assessment and plan: - Anticoagulated only with aspirin - rate controlled during exam - Further management per primary team (3) Acute blood loss anemia Current Visit: Yes Status: Acute Assessment and plan: - Secondary to upper GI bleed. - S/p EGD. - H/H stable at 11.4/35 - Continue to monitor and transfuse as necessary - Added carafate and PPI - Time Spent With Patient Total time spent is greater than 50% in coordination of care (as documented) at patient's floor/unit and/or counseling patient: - Subjective Interval history: patient seen and examined this morning. Fast asleep when this physician walks in the room. No recorded bloody or dark bowel movements overnight. notably went into afib this morning. - Constitutional Vitals: Temp Pulse Resp BP Pulse Ox 97.8 F 70 17 143/68 96 04/23/18 10:39 04/23/18 10:39 04/23/18 10:39 04/23/18 10:39 04/23/18 10:39 Exam: Gen.: Vitals noted. No acute distress. Resting comfortably. HEENT: PERRL/EOMI, oropharynx clear, Normocephalic, atraumatic, MMM Cardiac: Irregular, no murmur, +S1/S2 Pulmonary: CTA bilaterally, no wheezes, rales or rhonchi, equal chest expansion Abdomen: soft, nontender, BS noted, no guarding, no rebound. Extremities: no BLE edema, nontender calf, no cyanosis or clubbing Neuro: Fast asleep Psych: unable to assess Results - Labs CBC & Chem 7: 04/23/18 09:56 04/23/18 09:56 Labs: Last Result Calcium 9.0 mg/dL (8.6-10.3) 04/23/18 09:56 Troponin I 0.04 ng/mL (< 0.04) H* 04/23/18 09:56 Stool Occult Blood Positive (Negative) A 04/21/18 21:25 Entire Visit Hgb 11.4 g/dL (11.5-15.4) L D 04/23/18 09:56 Hct 35.3 % (35.3-44.9) 04/23/18 09:56 PT 14.0 Seconds (9.4-12.1) H 04/21/18 22:28 Total Bilirubin 1.8 mg/dL (0.3-1.0) H 04/21/18 22:28 AST 12 Units/L (13-39) L 04/21/18 22:28 ALT 6 Units/L (7-52) L 04/21/18 22:28 Lipase 10 Units/L (11-82) L 04/21/18 22:28 - ABG ABG results: PT/INR, D-dimer PT 14.0 Seconds (9.4-12.1) H 04/21/18 22:28 - Impressions Impressions Chest X-Ray 04/23/18 09:22 IMPRESSION: Stable chest demonstrating diffuse interstitial fibrosis. D/ / 04/23/2018 11:02:07 Markell Jordan MD / alisha Interpreting Provider: Markell Jordan MD - VTE Documentation of Mechanical Device: Intermittent pneumatic compression device Consult Discharge Plan - Plan Referrals: Freddie Castro DO [Primary Care Provider] -
[2018-04-23] MEDS: Sucralfate 1 GM TABLET PO SCH ×2 (16:37→22:20)
[2018-04-24] MEDS: 0.9 % Sodium Chloride 1,000 ML IVC SCH (01:53)
[2018-04-24 02:32] LABS: Basophils % 0.2 %; Eosinophils # 0.1 K/mcL (0.0-0.6); Eosinophils % 1.5 %; Hematocrit 29.1 % (35.3-44.9); Immature Granulocytes % 0.9 % (0-4); Lymphocytes # 1.7 K/mcL (0.6-4.6); Lymphocytes % 36.9 %; Mean Corpuscular HGB Conc 31.6 g/dL (31.6-35.5); Mean Corpuscular Hemoglobin 28.3 pg (28.0-33.3); Mean Corpuscular Volume 89.5 fL (83.0-100.0); Mean Platelet Volume 10.7 fL (9.4-12.4); Monocytes # 0.3 K/mcL (0.0-1.3); Monocytes % 5.3 %; Neutrophils # 2.6 K/mcL (1.6-8.9); Platelet Count 157 K/mcL (140-400); Red Blood Count 3.25 M/mcL (3.82-4.97); Red Cell Distribution Width 13.3 % (11.5-14.5); Segmented Neutrophils % 55.2 %
[2018-04-24 02:34] LABS: Hemoglobin 9.2 g/dL (11.5-15.4)
[2018-04-24 02:52] LABS: BUN/Creatinine Ratio 17 (6-26); Blood Urea Nitrogen 18 mg/dL (8-23); Calcium 8.8 mg/dL (8.6-10.3); Carbon Dioxide 28 mEq/L (23-29); Chloride 107 mEq/L (98-107); Glucose 221 mg/dL (70-105); Magnesium 1.6 mg/dL (1.6-2.6); Osmolality,Calculated 301 (280-300); Sodium 141 mEq/L (136-145); eGFR For African Americans > 60 (> 60); eGFR For Non-African Americans 51 (> 60)
--- NOTE | 2018-04-24 09:15 | Electrocardiograph Report ---
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
[2018-04-24] MEDS: Sucralfate 1 GM TABLET PO SCH ×2 (09:35→12:58)
[2018-04-24] MEDS: Insulin LISPRO 300 UNITS/3 ML VIAL SQ SCH ×2 (09:36→12:59)
[2018-04-24] MEDS: Insulin DETEMIR 100 UNIT/ML X5UNITS SQ SCH (09:38)
--- NOTE | 2018-04-24 10:10 | Discharge Summary ---
- NOTES TO OUTPATIENT PROVIDER Notes to Outpatient Provider: f/u with GI Dr. Ornelas in one week. f/u with PCP in one week. 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 Diabetes mellitus complication status: with kidney complications Diabetes mellitus complication detail: with chronic kidney disease Chronic kidney disease stage : stage 3 (moderate) Qualified Code(s): E11.22 - Type 2 diabetes mellitus with diabetic chronic kidney disease; N18.3 - Chronic kidney disease, stage 3 ( moderate); N18.3 - Chronic kidney disease, stage 3 (moderate); 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 Aiken is a 82 year old female with known past medical history is significant for diabetes, hypertension and A. fib currently on TII662 mg pt presented to ER for nausea and coffee ground emesis for 1 day. Pt did c/o dark colored stools. Denied any CP / SOB. She does have weakness and feels lethargic. She denied any previous h/o GI bleed. She was admitted in the hospital and started her on PPI. She was evaluated by GI and did EGD which showed single non bleeding erosion at GE junction. GI recommend to continue PPI BID + Carafate. She went into A fib with RVR for a short period, which resolved now. Currently she is in NSR with PO Metoprolol. Her CHADSVASC score 4, she is high risk pt, need jail anti coagulation, however due to her GI bleed, recommend to continue ASA 81mg only for now and f/u with PCP as an out pt. - Time Spent with Patient Total time spent providing and/or coordinating discharge services: - Discharge Medications Prescriptions: Omeprazole [PriLOSEC] 20 mg PO BIDAC #60 capsule. Sucralfate [Carafate] 1 gm PO QIDAC #120 tablet Home Medications: Atorvastatin [Lipitor] 40 mg PO HS 12/01/15 [History] Insulin Glargine [Lantus] 15 unit SQ BID 12/01/15 [History] Levothyroxine [Synthroid] 50 mcg PO DAILY 12/01/15 [History] Meclizine [Antivert] 25 mg PO TID PRN 12/01/15 [History] Saxagliptin HCl [Onglyza] 2.5 mg PO QAM 12/01/15 [History] amLODIPine [Norvasc] 5 mg PO DAILY 12/01/15 [History] metFORMIN [Glucophage] 500 mg PO TID 12/01/15 [History] Metoprolol [Lopressor] 25 mg PO BID #60 tablet 12/03/15 [Rx] Ondansetron ODT [Zofran ODT] 4 mg SL Q6HR #10 tab.rapdis 04/27/17 [Rx] Cholecalciferol (D-3) [Vitamin D] 2,000 unit PO DAILY 10/17/17 [History] Famotidine [Pepcid] 20 mg PO BID 10/17/17 [History] Ferrous Sulfate [Iron] 325 mg PO DAILY 10/17/17 [History] Magnesium Oxide [Mag-Ox] 400 mg PO TID 10/17/17 [History] Nitroglycerin [Nitrostat] 0.4 mg SL AD PRN 10/17/17 [History] [place]-3/Dha/Epa/Fish Oil [Fish Oil 1,000 mg Softgel] 1 each PO DAILY 10/17/17 [ History] Tramadol HCl [Ultram] 50 mg PO QID PRN 3 Days #7 tab 11/06/17 [Rx] Omeprazole [PriLOSEC] 20 mg PO BIDAC #60 capsule. 04/24/18 [Rx] Sucralfate [Carafate] 1 gm PO QIDAC #120 tablet 04/24/18 [Rx] Allergies/Adverse Reactions: 3 Allergy/AdvReac Type Severity Reaction Status Date / Time exenatide [From [place]] Allergy Nausea Verified 04/22/18 16:36 Date of admission: 04/22/18 01:19 Primary care physician: Freddie Castro - Constitutional Vitals: Temp Pulse Resp BP Pulse Ox 98.4 F 68 18 164/81 95 04/24/18 06:44 04/24/18 06:44 04/24/18 06:44 04/24/18 06:44 04/24/18 06:44 General appearance: Present: A&O X 3, no acute distress, answers questions appropriately - Head Head exam: Present: atraumatic, normal inspection - Neck Neck exam general surgery: Present: supple - Respiratory Respiratory exam: Present: decreased breath sounds. Absent: rales, respiratory distress, rhonchi, wheezes - Cardiovascular Cardiovascular exam: Present: RRR, +S1, +S2. Absent: tachycardia - GI/Abdominal GI/Abdominal exam: Present: normal bowel sounds, soft. Absent: rebound, rigid, tenderness - Extremities Exam Extremities exam: Absent: calf tenderness, pedal edema, tenderness - Back Exam Back exam: Absent: CVA tenderness (L), CVA tenderness (R) - Neurological Exam Neurological exam: Present: alert, oriented X3 - Psychiatric Psychiatric exam: Present: normal affect, normal mood - Skin Skin exam: Absent: rash - Patient Status Disposition: Home Health Service Condition: Good Overall status at discharge: patient is back to baseline - Discharge Instructions Follow Up With: Freddie Castro DO [Primary Care Provider] - Jasper Ornelas MD [Partnered Physician] - - Diet and Activity Activity: increase activity as tolerated Diet: low salt diet - VTE Documentation of Mechanical Device: Intermittent pneumatic compression device
--- NOTE | 2018-04-24 10:18 | Physician Discharge Referral ---
Home Health/Hosp Referral Info Transfer to: Home Health Provider in Charge Post Discharge: PCP - Diagnosis (1) Upper GI bleeding Status: Acute (2) Paroxysmal atrial fibrillation with rapid ventricular response Status: Chronic (3) Acute blood loss anemia Status: Acute (4) Elevated troponin Status: Acute (5) CKD (chronic kidney disease) stage 3, GFR 30-59 ml/min Status: Chronic (6) DM type 2 (diabetes mellitus, type 2) Status: Chronic - Respiratory Orders Smoking Cessation: Smoking cessation has been advised. For more information, call the [place] Tobacco Quit Line at 3-503-FCHM-NOW. - Services Needed Following services are medically necessary services: Nursing, Physical Therapy, Occupational Therapy - Transfer Medications Prescriptions: Aspirin Enteric Coated [Aspirin EC] 81 mg PO DAILY #30 tablet. Omeprazole [PriLOSEC] 20 mg PO BIDAC #60 capsule. Sucralfate [Carafate] 1 gm PO QIDAC #120 tablet Home Medications: Atorvastatin [Lipitor] 40 mg PO HS 12/01/15 [History] Insulin Glargine [Lantus] 15 unit SQ BID 12/01/15 [History] Levothyroxine [Synthroid] 50 mcg PO DAILY 12/01/15 [History] Meclizine [Antivert] 25 mg PO TID PRN 12/01/15 [History] Saxagliptin HCl [Onglyza] 2.5 mg PO QAM 12/01/15 [History] amLODIPine [Norvasc] 5 mg PO DAILY 12/01/15 [History] metFORMIN [Glucophage] 500 mg PO TID 12/01/15 [History] Metoprolol [Lopressor] 25 mg PO BID #60 tablet 12/03/15 [Rx] Ondansetron ODT [Zofran ODT] 4 mg SL Q6HR #10 tab.rapdis 04/27/17 [Rx] Cholecalciferol (D-3) [Vitamin D] 2,000 unit PO DAILY 10/17/17 [History] Famotidine [Pepcid] 20 mg PO BID 10/17/17 [History] Ferrous Sulfate [Iron] 325 mg PO DAILY 10/17/17 [History] Magnesium Oxide [Mag-Ox] 400 mg PO TID 10/17/17 [History] Nitroglycerin [Nitrostat] 0.4 mg SL AD PRN 10/17/17 [History] [place]-3/Dha/Epa/Fish Oil [Fish Oil 1,000 mg Softgel] 1 each PO DAILY 10/17/17 [ History] Tramadol HCl [Ultram] 50 mg PO QID PRN 3 Days #7 tab 11/06/17 [Rx] Aspirin Enteric Coated [Aspirin EC] 81 mg PO DAILY #30 tablet. 04/24/18 [Rx] Omeprazole [PriLOSEC] 20 mg PO BIDAC #60 capsule. 04/24/18 [Rx] Sucralfate [Carafate] 1 gm PO QIDAC #120 tablet 04/24/18 [Rx] Allergies/Adverse Reactions: 3 Allergy/AdvReac Type Severity Reaction Status Date / Time exenatide [From [place]] Allergy Nausea Verified 04/22/18 16:36 Certification: Further, I certify that my clinical findings support that this patient is homebound (i.e. absences from home require considerable and taxing effort and are for medical reasons or baptist services or infrequently or short duration when for other reasons) because: Homebound Reason: Patient requires assistance of a person or device to safely leave home Attestation: My signature below is to certify that this patient is under my care and that I, or nurse practitioner, or a physician's operational assistant working with me, has a face-to -face encounter with this patient.
[2018-04-24 11:07] VITALS: BP 199/89
--- NOTE | 2018-04-25 06:37 | Electrocardiograph Report ---
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
--- NOTE | 2018-04-25 06:38 | Electrocardiograph Report ---
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
== END 2018-04-24 13:18 | disposition home health service (06) | DRG 253 ==
LOC: EMEROO 21:20 → 3NENU 04-22 01:19
PROVIDERS: ADMIT Internal Medicine; ATTEND Internal Medicine
PROC: ENDOERT (2018-04-22 13:15)